=== PATIENT | female | born 1985 | race Caucasian/White ===

== ENCOUNTER 2025-02-19 10:15 | Emergency (ER) | payer OTHER ==
[2025-02-19] MEDS ORDERED: Sodium Chloride 0.9% 10 ML Syringe FLUSH PRN (11:01)
[2025-02-19] MEDS ORDERED: Naloxone 0.4 MG/ML SDV IVPUSH PRN (11:13)
[2025-02-19] MEDS: Ondansetron 4 MG/2 ML SDV IVPUSH ONE (11:39)
[2025-02-19 11:40] LABS: BASOPHILS ABSOLUTE AUTO 0.1 K/mm3 (0.0-0.2); BASOPHILS PERCENT AUTO 0.3 % (0.0-1.0); EOSINOPHILS ABSOLUTE AUTO 0.0 K/mm3 (0.0-0.4); EOSINOPHILS PERCENT AUTO 0.2 % (0.0-6.0); IMMATURE GRAN ABSOLUTE AUTO 0.07 K/mm3 (0.00-0.05); IMMATURE GRAN PERCENT AUTO 0.4 % (0.0-0.4); LYMPHOCYTES ABSOLUTE AUTO 1.3 K/mm3 (1.0-4.8); LYMPHOCYTES PERCENT AUTO 8.1 % (24.0-44.0); MEAN PLATELET VOLUME 9.4 fl (9.4-12.3); MONOCYTES ABSOLUTE AUTO 0.5 K/mm3 (0.0-0.8); MONOCYTES PERCENT AUTO 3.4 % (0.0-8.0); NEUTROPHILS ABSOLUTE AUTO 14.0 K/mm3 (1.8-7.7); NEUTROPHILS PERCENT AUTO 87.6 % (41.0-71.0); NRBC ABSOLUTE 0.00 (0.00-0.02); NRBC PERCENT 0.0 % (0.0-0.2); PLATELET COUNT,PLT 285 K/mm3 (150-400); RED BLOOD CELL COUNT 4.39 M/mm3 (4.10-5.30); WHITE BLOOD CELL COUNT,WBC 15.98 K/mm3 (3.9-11.3)
[2025-02-19 12:02] LABS: A/G RATIO 1.4 (1-2); ALANINE AMINOTRANSFERASE,ALT 17.0 U/L (14-59); ASPARTATE AMNIOTRANSFERASE,AST 9.0 U/L (15-37); BILIRUBIN TOTAL 1.0 mg/dL (0.2-1.0); BLOOD UREA NITROGEN,BUN 14.0 mg/dL (7-18); CARBON DIOXIDE,CO2 25.0 mEq/L (21-32); CHLORIDE,CL 105.0 mEq/L (98-107); CREATININE 1.1 mg/dL (0.55-1.02); EST CRCL DRUG DOSING (CG) 74.31 mL/min; ESTIMATED GFR 65.0 mL/min (>60); GLUCOSE RANDOM 108.0 mg/dL (70-99); POTASSIUM,K 3.6 mEq/L (3.5-5.1); PROTEIN TOTAL,TP 7.5 g/dl (6.4-8.2); SODIUM,NA 138.0 mEq/L (136-145)
[2025-02-19] MEDS: Iopamidol 612 MG/ML 100 ML Bottle IVPUSH ONE (12:30)
[2025-02-19 14:01] LABS: APPEARANCE,URINE SLT CLOUDY (Clear); GLUCOSE,URINE NEGATIVE (Negative); OCCULT BLOOD,URINE 3+ (Negative)
[2025-02-19 14:37] LABS: SQUAMOUS EPITHELIAL CELLS,UR 0-5 /hpf (0-5)
== END 2025-02-19 14:42 | disposition home or self-care (01) ==
LOC: JD.ED 10:15
DX: N13.2 Hydronephrosis with renal and ureteral calculous obstruction (principal); Z86.16 Personal history of COVID-19; Z88.2 Allergy status to sulfonamides; Z79.899 Other long term (current) drug therapy
CPT/HCPCS: 36415; 74177; 80053; 81001; 84703; 85025; 86140; 96361; 96374; 96375; 99284; J2405; J7030; Q9967; J1171